=== PATIENT | male | born 1985 | race Caucasian/White ===

== ENCOUNTER 2022-01-14 16:35 | Emergency (ER) | payer BC, SELFPAY ==
--- NOTE | ~2022-01-14 | XR_ITS ---
EXAMINATION: XR chest 2V Exam Date/Time: 01/14/2022 17:30 CDT HISTORY: difficulty breathing smoker Comparison: None available. RESULT: Lines, tubes, and devices: None. Lungs and pleura: Clear. Cardiomediastinal silhouette: Normal cardiomediastinal silhouette. Other: No acute osseous or upper abdominal finding. IMPRESSION: No acute cardiopulmonary process. Reviewed, dictated and finalized at location K.
[2022-01-14 16:55] VITALS: BP 138/71; PULSE 64; RESP 16; TEMP 36.3; O2SAT 100
--- NOTE | 2022-01-14 17:16 | ED.URI ---
HPI - URI/Sore Throat General Chief Complaint: Upper Respiratory Infection Stated Complaint: sob Time Seen by Provider: 01/14/22 17:16 Source: patient Mode of arrival: ambulatory Limitations: no limitations History of Present Illness HPI Narrative: 36 y/o male presented for c/o feeling shortness of breath and chest tightness with a 'bubble' in the left posterior lung. Onset last night while at work. He states he was cooking when he felt lightheaded and had to go sit down. Symptoms have persisted today. Denies cough, palpitations, nausea, vomiting, 7 oh and 17 fevers or chills. He denies sick contacts. He is not vaccinated for COVID or flu. Endorses increased stress at home. Related Data Allergies Allergy/AdvReac Type Severity Reaction Status Date / Time No Known Allergies Allergy Verified 01/14/22 18:09 Review of Systems Review of Systems: CONSTITUTIONAL: Denies body aches, fever, chills, or sweats. EYES: Denies visual changes, redness, or discharge. ENT: Denies rhinorrhea, congestion, sore throat, or otalgia. CARDIOVASCULAR: Denies chest pain, palpitations, or edema. RESPIRATORY: Denies cough GASTROINTESTINAL: Denies abdominal pain, nausea, vomiting, or diarrhea. SKIN: Denies rash, itching, or wounds. MUSCULOSKELETAL: Denies joint pain, or myalgia. NEUROLOGIC: Denies headache, numbness, tingling, or weakness. PSYCH: Reports stress All systems reviewed & are unremarkable except as noted in HPI and below PMFSH Comments At time of signature, I have reviewed and agree with nursing past medical, surgical, social and family history unless otherwise noted. Please see nursing chart for further information. There is no relevant family history pertinent to the presenting complaint Exam Narrative: GENERAL: Well-appearing, well-nourished, and in no acute distress. CHEST: No respiratory distress. Clear to auscultation. HEART: Regular rate and rhythm. No murmur appreciated. Normal peripheral pulses. ABDOMEN: Soft, nontender, nondistended, normal active bowel sounds. MUSCULOSKELETAL: No bony tenderness. SKIN: Warm, dry, no rash. Capillary refill normal. Normal skin turgor. NEURO: No focal deficits. Alert and oriented x3. Gait steady. PSYCH: Normal affect. Course Course Emergency Course: Patient is aware of diagnosis, understands and agrees to treatment plan. Anticipatory guidance given. Patient agrees to follow-up as directed and is aware of reasons to seek care at the emergency department. Portions of this record may have been created with voice recognition software Level of Care: Express Care Visit Vital Signs Vital signs: Vital Signs Temperature 97.4 F L 01/14/22 16:55 Pulse Rate 64 01/14/22 16:55 Respiratory Rate 16 01/14/22 16:55 Blood Pressure 138/71 01/14/22 16:55 Pulse Oximetry 100 01/14/22 16:55 Oxygen Delivery Room Air 01/14/22 16:55 Temperature 97.4 F L 01/14/22 16:55 Pulse Rate 64 01/14/22 16:55 Respiratory Rate 16 01/14/22 16:55 Blood Pressure 138/71 01/14/22 16:55 Pulse Oximetry 100 01/14/22 16:55 Oxygen Delivery Room Air 01/14/22 16:55 MDM - URI/Sore Throat MDM Narrative Medical decision making narrative: Chest x-ray negative, reviewed with patient. We discussed multiple causes of stress including anxiety at the workplace which is likely contributing to his symptoms. We discussed supportive treatment options as well as signs and symptoms and other etiologies for which to go to the ER Verbalizes understanding. Differential Diagnosis Differential diagnosis: Likely upper respiratory infection, viral infection, bronchitis and other (anxiety, panic, GERD) Imaging Data Radiologist's impression: Ordering Physician: Carlene To APRN Date of Service: 01/14/22 Procedure(s): XR chest 2V Accession Number(s): [id number] cc: Carlene To APRN; UNKNOWN,DOCTOR~ EXAMINATION:? XR chest 2V Exam Date/Time:? 01/14/2022 17:30 CDT H
== END 2022-01-14 18:03 | disposition home or self-care (01) ==
PROVIDERS: Emergency Provider Nurse Practitioner Family
DX: R06.02 Shortness of breath (principal)
CPT/HCPCS: 71046; 99213; G0463